=== PATIENT | female | born 1940 | race Caucasian/White ===

== ENCOUNTER 2019-09-29 01:38 | Outpatient (CLI) | payer MEDICARE, OTHER, SELFPAY ==
--- NOTE | 2019-09-29 | DI.CT_ITS ---
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 COMPARISON: CHEST 2 VIEWS PA,LAT from 12/03/2009 FINDINGS: There is mild respiratory motion on the expiratory images. There are multiple small calcified and no ncalcified mediastinal and hilar lymph nodes. There are multiple small bilateral nodules as well as i nterlobular septal thickening bilaterally, right greater than left. There are areas of scarring and m ore confluent densities seen in the right upper, middle and lower lobes. No significant bronchiectasi s. No emphysematous changes or ground-glass opacities are seen. The heart size is normal. There is mi ld aortic and pulmonary artery calcification. There are no pleural or pericardial effusions. No bony abnormalities are seen. IMPRESSION: Increased reticulonodular densities with some confluent areas of consolidation, right greater than le ft. The findings are consistent with sarcoid. Findings appear grossly stable compared with the previo us chest x-ray.
== END 2019-09-29 01:58 ==
PROVIDERS: PCP Family Medicine; Visit Provider Internal Medicine
DX: D86.0 Sarcoidosis of lung (principal)
CPT/HCPCS: 71250

== ENCOUNTER 2019-10-17 02:07 | Outpatient (CLI) | payer MEDICARE, OTHER, SELFPAY ==
--- NOTE | 2019-10-17 | PFT_ITS ---
PULMONARY FUNCTION TEST REPORT Patient - Leah Field DATE OF : 44 DATE OF SERVICE October 17, 2019. REQUESTING PROVIDER Michelle Myers M.D. INTERPRETATION OF STUDY Spirometry shows mild obstructive airways disease with no significant bronchodilator response. LUNG VOLUMES - Lung volumes show no evidence of restriction. DIFFUSION CAPACITY- Mildly reduced even when corrected to alveolar volume. AIRWAY RESISTANCE Elevated. IMPRESSION Mild obstructive airways disease with no significant bronchodilator response. This is associated with mild diffusion defect. Clinical correlation recommended. Michelle Myers M.D. JENNIFER/ DD - 10/20/19
[2019-10-17] MEDS: Inhaler, Assist Device 1 EACH MC (14:22)
[2019-10-17] MEDS: Albuterol HFA 18 GM 200 PUFF INH IH (14:22)
== END 2019-10-17 02:27 ==
PROVIDERS: PCP Family Medicine; Visit Provider Internal Medicine
DX: D86.9 Sarcoidosis, unspecified (principal)
CPT/HCPCS: 94060; 94726; 94729

== ENCOUNTER 2020-01-28 22:41 | Emergency (ER) | payer MEDICARE, OTHER, SELFPAY ==
[2020-01-28 22:54] VITALS: BP 185/71; PULSE 68; RESP 16; TEMP 36.5; O2SAT 98
[2020-01-28 22:57] VITALS: BP 152/87; PULSE 68; RESP 16; TEMP 36.5; O2SAT 98
--- NOTE | 2020-01-28 23:03 | W.ED.GENAD ---
Discharge Plan Disposition Patient Disposition: HOME Condition: Good Discharge Details Chief Complaint: RashLesion Clinical Impression: Tick bite of back Primary Care Provider: Jessica Vaughn ED Provider: Stanley Alegre Home Meds and New Rx's Prescriptions: Continued biotin 10 MG tablet 10 mg PO DAILY RF: 0 alendronate 35 MG tablet 35 mg PO DIRECTED RF: 0 flaxseed oil 1,000 MG capsule 1,000 mg PO DAILY RF: 0 Flovent HFA 120 PUFF HFA aerosol inhaler 1 puff Inhalation DAILY RF: 0 Magnesium (oxide/AA chelate) 300 MG capsule 300 mg PO DAILY RF: 0 loratadine [Claritin Liqui-Gel] 10 MG capsule 10 mg PO HS RF: 0 Soothe Lubricant 1 EACH dropperette 2 drp OU TID RF: 0 calcium carb and citrate-vitD3 1 EACH tablet extended release 2 tab PO BID RF: 0 OcuSoft Lid Scrub Plus 1 EACH pads, medicated 1 ea OU TID RF: 0 Discharge Instructions Instructions: Tick Bite (ED) Additional Instructions: Please take the 2 pills tonight with food, avoid dairy when taking the pills. If you notice any worsening of your symptoms, or any new symptoms such as spreading rash, worsening redness, vomiting, diarrhea, fever, chills, shortness of breath, chest pain, numbness, weakness, or fainting , please return immediately to the emergency department for reevaluation. Please follow up with your primary care provider as soon as possible for reassessment and reevaluation. As always, it was a pleasure participating in your medical care today. Referrals: Jessica Vaughn [Primary Care Provider] - Discharge Data Discharge Date/Time-TO BE ENTERED AT DEPARTURE: 01/28/20 23:15 Medical Decision Making 79-year-old female presents today for evaluation of tick bite. Patient states that 2 weeks ago she had a tick bite, located on extremity, she removed it went to the urgent care received doxycycline. Since then over the last 2 days she has noticed 2 additional ticks both of which are been deer ticks which she was able to remove, however the removal of the site of the 1 on her posterior back she did notice a small amount of redness tonight when she removed it. She is come in for further evaluation. She denies fever chills joint pain. She denies numbness tingling or weakness. No other complaints at this time. No known allergies to doxycycline. Physical exam demonstrates a small amount of redness on her left lower flank location of what appears to be a previous tick bite. No bull's-eye lesion, no fluctuance or evidence of abscess, no evidence of true erythema migrans at this point. With the patient's recent bite I do think prophylactic treatment is reasonable with 200 mg of doxycycline given here. Pills will be given here for the patient. Discussed red flags which to return. I have extensively reviewed the treatment plan and discharge instructions with the patient. I have addressed all patient concerns at this time. The patient was made aware of what symptoms to monitor for that would warrant a return to the emergency department. Discussed the plan with the patient, they demonstrate verbal understanding and agreement with our assessment and plan at this time. HPI General Date/Time Provider Initiated Documentation: 01/28/20 22:52. HPI Narrative: 79-year-old female presents today for evaluation of tick bite. Patient states that 2 weeks ago she had a tick bite, located on extremity, she removed it went to the urgent care received doxycycline. Since then over the last 2 days she has noticed 2 additional ticks both of which are been deer ticks which she was able to remove, however the removal of the site of the 1 on her posterior back she did notice a small amount of redness tonight when she removed it. She is come in for further evaluation. She denies fever chills joint pain. She denies numbness tingling or weakness. No other complaints at this time. No known allergies to doxycycline. Related Data Home Medications Medication Instructions Recorded Confirmed Flovent HFA 1 puff INHALATION DAILY 05/07/17 01/28/20 Magnesium (oxide/AA chelate) 300 mg PO DAILY 05/07/17 01/28/20 alendronate 35 mg PO DIRECTED 05/07/17 01/28/20 biotin 10 mg PO DAILY 05/07/17 01/28/20 flaxseed oil 1,000 mg PO DAILY 05/07/17 01/28/20 loratadine [Claritin Liqui-Gel] 10 mg PO HS 05/07/17 01/28/20 OcuSoft Lid Scrub Plus 1 ea OU TID 07/06/17 01/28/20 Soothe Lubricant 2 drp OU TID 07/06/17 01/28/20 calcium carb and citrate-vitD3 2 tab PO BID 07/06/17 01/28/20 Allergies Allergy/AdvReac Type Severity Reaction Status Date / Time adhesive tape AdvReac Intermediate Other (See Unverified 01/28/20 22:57 Comment) hydromorphone [From Dilaudid] AdvReac Intermediate Nausea Unverified 01/28/20 22:57 metronidazole [From Flagyl] AdvReac Intermediate Skin Rash Unverified 01/28/20 22:57 mild Allergy Intermediate sinusitis Uncoded 01/28/20 22:57 General Stated Complaint: RashLesion ABIMBOLA: 5 Review of Systems All systems reviewed & are unremarkable except as noted in HPI and below PFSH Social History Smoking/Tobacco Use Status: Never Substance use type: does not use Do you feel safe at home: Yes Do you feel safe in your relationship?: Yes Exam Narrative Exam Narrative: 1.Const: Well-nourished, Well-developed, appearing stated age 2.Eyes: PERRL, no conjunctival injection, and symmetrical lids. 3.ENT: Atraumatic external nose and ears. Moist MM. Neck: Symmetric, trachea midline, No thyromegaly. 4.CVS: +S1/S2, No murmurs or gallops. Peripheral pulses 2+ and equal in all extremities. Brisk capillary refill in all extremities. 5.RESP: Unlabored respiratory effort. Clear to auscultation bilaterally. No wheezes rales or rhonchi 6.GI: Soft, Nontender/Nondistended, No hepatosplenomegaly. No guarding or rebound. 7.MSK: Normocephalic/Atraumatic, Extremities w/o deformity or ttp No cyanosis or clubbing, Normal movement of all extremities 8.Skin: Warm, Dry. Patient's left flank demonstrates a very small erythematous spot, no evidence of retained arthropod. No bull's-eye lesion. Mild tenderness on palpation there, but no fluctuance or signs of abscess. Negative Nikolsky sign. No large vesicles or bulla. No palpable purpura. No oral lesions. No mucosal lesions. No evidence of severe cellulitis. No evidence of vaccine preventable rash. 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 Sensation grossly intact, no focal neurologic deficits. 10.Psych: (AAO) x3. Appropriate mood and affect Course Vital Signs Vital signs: Vital Signs Temperature 36.5 C 01/28/20 22:54 Pulse 68 01/28/20 22:54 Respiratory Rate 16 01/28/20 22:54 Blood Pressure 185/71 H 01/28/20 22:54 Pulse Oximetry 98 01/28/20 22:54 Temperature 36.5 C 01/28/20 22:57 Temperature Source Skin 01/28/20 22:54 Pulse 68 01/28/20 22:57 Respiratory Rate 16 01/28/20 22:57 Respiratory Effort Non-Labored 01/28/20 22:54 Blood Pressure 152/87 H 01/28/20 22:57 Blood Pressure Position Sitting 01/28/20 22:54 Pulse Oximetry 98 01/28/20 22:57 Oxygen Delivery Method Room Air 01/28/20 22:54 Oxygen Flow Rate 0 01/28/20 22:54 Pain Level 2 01/28/20 22:57
[2020-01-28] MEDS: Doxycycline Hyclate 100 MG, 2 CAPS/BTL PO (23:08)
== END 2020-01-28 23:15 | disposition home or self-care (01) ==
PROVIDERS: Emergency Provider Student in an Organized Health Care Education/Training Program; PCP Family Medicine
DX: S30.860A Insect bite (nonvenomous) of lower back and pelvis, initial encounter (principal); W57.XXXA Bitten or stung by nonvenomous insect and other nonvenomous arthropods, initial encounter
CPT/HCPCS: 99283

== ENCOUNTER 2020-01-29 23:16 | Emergency (ER) | payer MEDICARE, OTHER, SELFPAY ==
--- NOTE | 2020-01-29 23:18 | ED.GENADUL_ITS ---
Discharge Plan Disposition Patient Disposition: HOME Condition: Good Discharge Details Chief Complaint: GenMedical Clinical Impression: Encounter for medical screening examination, Tick bite Primary Care Provider: Jessica Vaughn ED Provider: Stanley Alegre Home Meds and New Rx's Prescriptions: Continued biotin 10 MG tablet 10 mg PO DAILY RF: 0 alendronate 35 MG tablet 35 mg PO DIRECTED RF: 0 flaxseed oil 1,000 MG capsule 1,000 mg PO DAILY RF: 0 Flovent HFA 120 PUFF HFA aerosol inhaler 1 puff Inhalation DAILY RF: 0 Magnesium (oxide/AA chelate) 300 MG capsule 300 mg PO DAILY RF: 0 loratadine [Claritin Liqui-Gel] 10 MG capsule 10 mg PO HS RF: 0 Soothe Lubricant 1 EACH dropperette 2 drp OU TID RF: 0 calcium carb and citrate-vitD3 1 EACH tablet extended release 2 tab PO BID RF: 0 OcuSoft Lid Scrub Plus 1 EACH pads, medicated 1 ea OU TID RF: 0 Discharge Instructions Instructions: Tick Bite (ED) Additional Instructions: At this time before we remove the tick in the head, it was a dog tick, the likelihood of Lyme is extremely low, and since you got the tick off within 48 hours there is no indication for antibiotics. If you notice any worsening of your symptoms, or any new symptoms such as vomiting, diarrhea, fever, chills, shortness of breath, chest pain, numbness, weakness, or fainting , please return immediately to the emergency department for reevaluation. Please follow up with your primary care provider as soon as possible for reassessment and reevaluation. As always, it was a pleasure participating in your medical care today. Referrals: Jessica Vaughn [Primary Care Provider] - Medical Decision Making 79-year-old female presents today for evaluation of tick bite. She was actually just seen last night, tick was removed at that time, small red spot was present she was given dose of doxycycline 200 mg. She presents today she found another tick on her anterior chest today, was only there for a few hours she ripped it off and want to get checked make sure there was no retained foreign body. She otherwise has no complaints, no no fever chills redness swelling or other complaints. No other modifying factors. He took that the patient has here is fully intact with a bit of skin at the tip, it is notably not engorged. It is also a dog tick and not a deer tick. At this time there is no indication for antibiotics such as it has been less than 48 hours since the tick bite, the tick is not engorged, and it is a dog tick. Discussed red flags which return. I have extensively reviewed the treatment plan and discharge instructions with the patient and their family. I have addressed all patient concerns at this time. The patient and family was made aware of what symptoms to monitor for that would warrant a return to the emergency department. Discussed the plan with the patient and family, they demonstrate verbal understanding and agreement with our assessment and plan at this time. Also of note the small red spot that was on the patient's flank from last night is slightly improved as well and definitely not worsening. HPI General Date/Time Provider Initiated Documentation: 01/29/20 23:16 . HPI Narrative: 79-year-old female presents today for evaluation of tick bite. She was actually just seen last night, tick was removed at that time, small red spot was present she was given dose of doxycycline 200 mg. She presents today she found another tick on her anterior chest today, was only there for a few hours she ripped it off and want to get checked make sure there was no retained foreign body. She otherwise has no complaints, no no fever chills redness swelling or other complaints. No other modifying factors. Related Data Home Medications Medication Instructions Recorded Confirmed Flovent HFA 1 puff INHALATION DAILY 05/07/17 01/28/20 Magnesium (oxide/AA chelate) 300 mg PO DAILY 05/07/17 01/28/20 alendronate 35 mg PO DIRECTED 05/07/17 01/28/20 biotin 10 mg PO DAILY 05/07/17 01/28/20 flaxseed oil 1,000 mg PO DAILY 05/07/17 01/28/20 loratadine [Claritin Liqui-Gel] 10 mg PO HS 05/07/17 01/28/20 OcuSoft Lid Scrub Plus 1 ea OU TID 07/06/17 01/28/20 Soothe Lubricant 2 drp OU TID 07/06/17 01/28/20 calcium carb and citrate-vitD3 2 tab PO BID 07/06/17 01/28/20 Allergies Allergy/AdvReac Type Severity Reaction Status Date / Time adhesive tape AdvReac Intermediate Other (See Unverified 01/29/20 23:21 Comment) hydromorphone [From Dilaudid] AdvReac Intermediate Nausea Unverified 01/29/20 23:21 metronidazole [From Flagyl] AdvReac Intermediate Skin Rash Unverified 01/29/20 23:21 mild Allergy Intermediate sinusitis Uncoded 01/29/20 23:21 General ABIMBOLA: 5 Review of Systems All systems reviewed & are unremarkable except as noted in HPI and below PFSH Social History Smoking/Tobacco Use Status: Never Substance use type: does not use Do you feel safe at home: Yes Do you feel safe in your relationship?: Yes Exam Narrative Exam Narrative: 1.Const: Well-nourished, Well-developed, appearing stated age 2.Eyes: PERRL, no conjunctival injection, and symmetrical lids. 3.ENT: Atraumatic external nose and ears. Moist MM. Neck: Symmetric, trachea midline, No thyromegaly. 4.CVS: +S1/S2, No murmurs or gallops. Peripheral pulses 2+ and equal in all extremities. Brisk capillary refill in all extremities. 5.RESP: Unlabored respiratory effort. Clear to auscultation bilaterally. No wheezes rales or rhonchi 6.GI: Soft, Nontender/Nondistended, No hepatosplenomegaly. No guarding or rebound. 7.MSK: Normocephalic/Atraumatic, Extremities w/o deformity or ttp No cyanosis or clubbing, Normal movement of all extremities 8.Skin: Warm, Dry. No rashes or lesions. No evidence of erythema migrans. The lesion on her anterior chest for the tick was removed cannot be identified there is no evidence of foreign bug at all. The tick that she gives us has its complete body intact, with a small amount of skin. No evidence for retained head. 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 Sensation grossly intact, no focal neurologic deficits. 10.Psych: (AAO) x3. Appropriate mood and affect
[2020-01-29 23:19] VITALS: BP 146/72; PULSE 78; RESP 18; TEMP 36.8; O2SAT 96
--- NOTE | 2020-01-29 23:25 | NUR.NOTE ---
Nursing Note: patient was seen yesterday for a tick bite to her right side. today she was in the garden and found a tick on her abdomen. removed it and brought it in to be assessed.
== END 2020-01-29 23:28 | disposition home or self-care (01) ==
LOC: ER 23:29
PROVIDERS: Emergency Provider Student in an Organized Health Care Education/Training Program; PCP Family Medicine
DX: S20.96XA Insect bite (nonvenomous) of unspecified parts of thorax, initial encounter (principal); W57.XXXA Bitten or stung by nonvenomous insect and other nonvenomous arthropods, initial encounter
CPT/HCPCS: 99283

== ENCOUNTER 2022-09-30 12:10 | Emergency (ER) | payer MEDICARE, OTHER, SELFPAY ==
--- NOTE | 2022-09-30 12:15 | DI.US_ITS ---
Exam(s) US LOWER EXTREMITY VENOUS RT EXAM: US LOWER EXTREMITY VENOUS RT CLINICAL HISTORY: right calf pain TECHNIQUE: Right lower extremity venous ultrasound performed using grayscale, color-flow, and spectr al Doppler analysis. COMPARISON: No exams were available for comparison FINDINGS: The right common femoral, femoral and popliteal veins demonstrate normal compressibility, augmentatio n, and color Doppler. The posterior tibial veins are patent. The saphenofemoral junction is unremark able. There is no evidence of a Palumbo cyst. The soft tissues are unremarkable. IMPRESSION: 1. No evidence of a right lower extremity DVT. 2. Findings were discussed with Jose Medina at 12:58 p.m. on 09/30/2022. DATA REPOSITORY:
[2022-09-30 12:30] VITALS: BP 130/111; PULSE 73; RESP 16; TEMP 36; O2SAT 99
[2022-09-30 12:36] VITALS: RESP 16
--- NOTE | 2022-09-30 12:52 | ED.GENADUL_ITS ---
Discharge Plan Disposition Patient Disposition: Home Condition: Stable Discharge Details Clinical Impression: Right calf pain Primary Care Provider: Kathi Holbrook ED Provider: Jose Medina Home Meds and New Rx's Prescriptions: Continued biotin 10 MG tablet 10 mg PO DAILY alendronate 35 MG tablet 35 mg PO DIRECTED flaxseed oil 1,000 MG capsule 1,000 mg PO DAILY fluticasone propionate [Flovent HFA] 120 PUFF HFA aerosol inhaler 1 puff Inhalation DAILY Magnesium (oxide/AA chelate) 300 MG capsule 300 mg PO DAILY Claritin Liqui-Gel 10 MG capsule 10 mg PO HS Soothe Lubricant 1 EACH dropperette 2 drp OU TID calcium carb and citrate-vitD3 1 EACH tablet extended release 2 tab PO BID OcuSoft Lid Scrub Plus 1 EACH pads, medicated 1 ea OU TID Discharge Instructions Instructions: Leg Pain (ED) Additional Instructions: You may continue to perform activity as tolerated and take [id number] pain medication as needed for discomfort. No obvious DVT was noted on exam today but if you have any new or significant worsening of condition or change in your symptoms you may feel free to follow-up with your primary care provider or return to the emergency department for reassessment. Referrals: Kathi Holbrook, ANALYTICS SENIOR MANAGER [Primary Care Provider] - (As needed for reassessment) Discharge Data Discharge Date/Time-TO BE ENTERED AT DEPARTURE: 09/30/22 13:08 Medical Decision Making Patient presenting to the emergency department for chief complaint of right calf pain. Patient states that she does ride in a car for 4 hours at a time and is concerned about a potential clot. Patient denies any history of blood clots, denies any recent surgery or trauma, denies fever chills chest pain or shortness of breath. Physical exam does show tenderness to the right posterior mid to proximal calf. No ecchymosis erythema or swelling is noted to the area of tenderness or distal to pain. Given patient's age and long periods of being sedentary will perform ultrasound of right lower extremity for evaluation of DVT. Offered patient pain medication pending results which she deferred at this time. Review of pulmonary report from master technician showed no DVT or thrombus noted on exam. I do feel that patient is able to safely monitor symptoms at home and follow-up with primary care provider or return to the emergency department for new or worsening symptoms. After discussion of diagnosis and plan of care patient has no further needs, questions, or concerns and states clear understanding to return to the emergency department for any worsening symptoms. This documentation was generated using [employer] dictation system, please disregard any oddities of phrase or misspellings. Imaging Data Radiologic Study: Attestation: I personally reviewed and interpreted this imaging study as follows: Imaging: Ultrasound Radiologist's impression: EXAM: US LOWER EXTREMITY VENOUS RT CLINICAL HISTORY: right calf pain TECHNIQUE: Right lower extremity venous ultrasound performed using grayscale, color-flow, and spectral Doppler analysis. COMPARISON: No exams were available for comparison FINDINGS: The right common femoral, femoral and popliteal veins demonstrate normal compressibility, augmentation, and color Doppler. The posterior tibial veins are patent. The saphenofemoral junction is unremarkable. There is no evidence of a Palumbo cyst. The soft tissues are unremarkable. IMPRESSION: 1. No evidence of a right lower extremity DVT. 2. Findings were discussed with Jose Medina at 12:58 p.m. on 09/30/2022. [facility] General Mode of arrival: ambulatory . Date/Time Provider Initiated Documentation: 09/30/22 12:20 . Limitations to Documentation: no limitations . Information obtained by: patient and RN notes reviewed . History of Present Illness 82 year old F presents to the emergency department with the chief complaint of Right calf pain, described as mild, with intensity rated at 4. Quality is described as aching, and is localized to the right and lower extremity. Patient reports no radiation. Patient started experiencing this day(s) (2) and it has been constant. No relieving factors improve symptom(s), Movement worsens symptoms . Patient notes no other symptoms.. Patient did receive the following treatments prior to arrival, none Related Data Home Medications Medication Instructions Recorded Confirmed alendronate 35 mg tablet 35 mg PO DIRECTED 05/07/17 09/30/22 biotin 10 mg tablet 10 mg PO DAILY 05/07/17 09/30/22 flaxseed oil 1,000 mg capsule 1,000 mg PO DAILY 05/07/17 01/28/20 fluticasone propionate 44 1 puff inhalation DAILY 05/07/17 09/30/22 mcg/actuation HFA aerosol inhaler (Flovent HFA) loratadine 10 mg capsule (Claritin 10 mg PO HS 05/07/17 09/30/22 Liqui-Gel) magnesium oxide-magnesium amino 300 mg PO DAILY 05/07/17 09/30/22 acid chelate 300 mg capsule (Magnesium (oxide/AA chelate)) calcium carb,cit ER 600 mg-vit D3 2 tab PO BID 07/06/17 09/30/22 12.5 mcg (500 unit) tablet,ext.rel eyelid cleanser combination 3 1 ea OU TID 07/06/17 09/30/22 (OcuSoft Lid Scrub Plus topical pads) propylene glycol-glycerin 0.6 2 drp OU TID 07/06/17 09/30/22 %-0.6 % eye drops in a dropperette (Soothe Lubricant) Allergies Allergy/AdvReac Type Severity Reaction Status Date / Time adhesive tape AdvReac Intermediate Other (See Unverified 09/30/22 12:34 Comment) hydromorphone [From Dilaudid] AdvReac Intermediate Nausea Unverified 09/30/22 12:34 metronidazole [From Flagyl] AdvReac Intermediate Skin Rash Unverified 09/30/22 12:34 mild Allergy Intermediate sinusitis Uncoded 09/30/22 12:34 General Stated Complaint: GenMedical ABIMBOLA: 4 Review of Systems Constitutional Constitutional: Denies chills, Denies fever(s) and Denies headache(s) ENT Ears, Nose, Mouth, and Throat: Denies headache(s) Cardiovascular Cardiovascular: Denies chest pain, Denies pedal edema, Denies irregular heart rhythm, Reports claudication, Denies leg edema, Denies lightheadedness and Denies dyspnea Respiratory Respiratory: Denies dyspnea Gastrointestinal Gastrointestinal: Denies abdominal pain Musculoskeletal Musculoskeletal: Reports as per HPI Integumentary/Breasts Skin/Breast: Denies erythema and Denies rash Neurologic Neurologic: Denies headache(s) and Denies sensory deficit PFSH All Active Problems (Updated 09/30/22 @ 12:58 by Jose Medina NP) Right calf pain (Acute) Social History Smoking/Tobacco Use Status: Never Smoking risk assessment performed?: Yes Alcohol Intake: never Substance use type: does not use Do you feel safe at home: Yes Do you feel safe in your relationship?: Yes Exam Const General: cooperative, no acute distress and not ill appearing Orientation: alert, awake and oriented x3 Resp Effort & Inspection: normal respiratory effort, able to speak in complete sentences and no respiratory distress Cardio Rate: regular rate Rhythm: regular rhythm Pulses: normal peripheral pulses Skin General skin exam: no rashes or lesions noted Neuro General: patient alert, patient awake, patient oriented x3, moves all extremities and no focal motor deficits Sensory Exam: no sensory deficits noted Extrem General: normal exam except as noted Right lower extremity: normal capillary refill, lower leg Details: tenderness Location: of the posterior calf and no edema; no ecchymosis and no deformity and foot Details: normal capillary refill, no edema and vascular exam Details: dorsalis pedis pulse present and posterior tibial pulse present Course Vital Signs Vital signs: Vital Signs Temperature 36.0 C L 09/30/22 12:30 Pulse 73 09/30/22 12:30 Respiratory Rate 16 09/30/22 12:30 Blood Pressure 130/111 H 09/30/22 12:30 Pulse Oximetry 99 09/30/22 12:30 Temperature 36.0 C L 09/30/22 12:30 Temperature Source Temporal Artery Scan 09/30/22 12:30 Pulse 73 09/30/22 12:30 Respiratory Rate 16 09/30/22 12:36 Respiratory Effort Normal, Non-Labored 09/30/22 12:36 Respiratory Depth Normal 09/30/22 12:36 Respiratory Pattern Normal 09/30/22 12:36 Blood Pressure 130/111 H 09/30/22 12:30 Blood Pressure Position Sitting 09/30/22 12:30 Pulse Oximetry 99 09/30/22 12:30 Oxygen Delivery Method Room Air 09/30/22 12:30 Oxygen Flow Rate 0 09/30/22 12:30
[2022-09-30 13:02] VITALS: BP 157/49; PULSE 70; RESP 16; TEMP 36.2; O2SAT 98
== END 2022-09-30 13:08 | disposition home or self-care (01) ==
PROVIDERS: Emergency Provider Nurse Practitioner Family; PCP Nurse Practitioner Family
DX: M79.661 Pain in right lower leg (principal)
CPT/HCPCS: 99283; 93971

== ENCOUNTER 2022-11-26 02:53 | Outpatient (CLI) | payer MEDICARE, SELFPAY ==
[2022-11-26 09:32] LABS: Abs Immature Grans 0.02 10^3/uL (0.0-0.06); Absolute Basophil Count 0.03 10^3/uL (0.0-0.2); Absolute Eosinophil Count 0.11 10^3/uL (0.0-0.7); Absolute Lymphocyte Count 0.73 10^3/uL (1.2-3.4); Absolute Monocyte Count 0.44 10^3/uL (0.1-0.8); Basophils % 0.7; Eosinophils % 2.4; HCT 41.2 % (36.0-46.0); HGB 14.1 g/dL (11.2-15.7); Immature Grans % 0.4; Lymphocytes % 16.1; MCH 29.6 pg (27.0-33.0); MCHC 34.2 % (32.0-36.0); MCV 86 fL (80-95); MPV 9.5 fL (8.0-11.0); Monocytes % 9.7; Neutrophils % 70.7; Platelet Count 149 10^3/uL (130-400); RBC 4.77 10^6/uL (3.93-5.22); RDW 12.1 % (11.7-14.6); RDW-SD 38.5 fL; WBC 4.53 10^3/uL (4.4-10.8)
[2022-11-26 10:00] LABS: ALT 24 U/L (14-59); AST 19 U/L (15-37); Albumin 3.6 g/dL (3.4-5.0); Alkaline Phosphatase 93 U/L (46-116); Anion Gap 5.1 mmol/L (3-11); BUN 18 mg/dL (7-18); Bilirubin, Total 0.4 mg/dL (0.2-1.0); CO2 29.9 mmol/L (21.0-32.0); CREATININE 0.9 mg/dL (0.55-1.02); Calcium 8.7 mg/dL (8.5-10.1); Chloride 110 mmol/L (98-107); Estimated GFR 64.63 (mL/min/1.73m2); Glucose 96 mg/dL (74-106); Potassium 4.3 mmol/L (3.5-5.1); Sodium 145 mmol/L (136-145); Total Protein 6.7 g/dL (6.4-8.2)
== END 2022-11-26 02:54 | disposition home or self-care (01) ==
LOC: LBO 02:53
PROVIDERS: PCP Nurse Practitioner Family; Visit Provider Internal Medicine Hematology & Oncology
DX: D69.6 Thrombocytopenia, unspecified (principal); D72.819 Decreased white blood cell count, unspecified
CPT/HCPCS: 36415; 80053; 85025

== ENCOUNTER 2023-07-01 13:55 | Emergency (ER) | payer MEDICARE, OTHER, SELFPAY ==
[2023-07-01 14:03] VITALS: BP 124/58; PULSE 82; RESP 16; TEMP 36.6; O2SAT 98
[2023-07-01 14:05] VITALS: BP 124/58; PULSE 72; RESP 14; RESP 16; TEMP 36.6; O2SAT 98
--- NOTE | 2023-07-07 16:21 | ED.GENADUL_ITS ---
Discharge Plan Disposition Patient Disposition: Home Discharge Details Clinical Impression: COVID-19, Oral thrush, Pulmonary sarcoidosis Primary Care Provider: Kathi Holbrook ED Provider: Barbara Martinez Home Meds and New Rx's Prescriptions: New nystatin 100,000 unit/mL suspension 100,000 unit PO QID Qty: 200 0RF Rx Instructions: swish and swallow 4-6 ml po qid for 7-14 days or for at least two days after your thrush has resolved Paxlovid 300 mg (150 mg x 2)-100 mg tablets,dose pack See Rx Instructions .ROUTE .COMPLEX Qty: 30 0RF Rx Instructions: take TWO 150 mg tablets of nirmatrelvir with ONE 100 mg tablet of ritonavir twice daily for 5 days Continued biotin 10 MG tablet 10 mg PO DAILY fluticasone propionate [Flovent HFA] 120 PUFF HFA aerosol inhaler 1 puff Inhalation DAILY Magnesium (oxide/AA chelate) 300 MG capsule 300 mg PO DAILY Discharge Instructions Instructions: Viral Syndrome (ED) Additional Instructions: Take the Paxlovid as prescribed take the nystatin as prescribed Rest, keep yourself hydrated Please return earlier should you have new or worsening complaints Follow-up with your doctor next week Referrals: Kathi Holbrook, REAL ESTATE BROKER ASSOCIATE [Primary Care Provider] - Discharge Data Discharge Date/Time-TO BE ENTERED AT DEPARTURE: 07/01/23 14:42 Medical Decision Making 82-year-old female presenting with report of a COVID-19 diagnosis white discharge on tongue and mild sore throat Vitals are stable, patient appears quite well She is still a candidate for Paxlovid because of a history of pulmonary sarcoidosis So I think she is a candidate to receive this medication, she had recent labs and her renal function was within normal limits and so I will call in a prescription for her Patient is afebrile and nontoxic She is given low threshold for return Lungs are clear to auscultation, rate rhythm cardiovascularly is regular, maintaining secretions, thrush noted on tongue, will give prescription for nystatin swish and swallow Recheck next week recommended Early return precautions reviewed and patient expressed understanding Alert, oriented, pleasant HPI General Date/Time Provider Initiated Documentation: 07/01/23 14:07 . HPI Narrative: 82-year-old female presents with report of COVID-19 diagnosis 3 days prior to arrival, respiratory standpoint. States she is breathing well but is concerned regarding some weight discharge, tongue which she is concerned for thrush. Has a history of pulmonary sarcoidosis. Is not on any immunosuppressive's. Denies fever but has had some chills. Denies any weakness or dizziness. Otherwise feeling well per patient. Mild sore throat. Related Data Home Medications Medication Instructions Recorded Confirmed biotin 10 mg tablet 10 mg PO DAILY 05/07/17 07/01/23 fluticasone propionate 44 1 puff inhalation DAILY 05/07/17 07/01/23 mcg/actuation HFA aerosol inhaler (Flovent HFA) magnesium oxide-magnesium amino 300 mg PO DAILY 05/07/17 07/01/23 acid chelate 300 mg capsule (Magnesium (oxide/AA chelate)) nirmatrelvir 300 mg (150 mg See Rx Instructions PO .COMPLEX 07/01/23 x2)-ritonavir 100 mg tablet,dose #30 dose pk pack (Paxlovid) nystatin 100,000 unit/mL oral 100,000 unit PO QID #200 mL 07/01/23 suspension Previous Rx's Medication Instructions Recorded nirmatrelvir 300 mg (150 mg See Rx Instructions PO .COMPLEX 07/01/23 x2)-ritonavir 100 mg tablet,dose #30 dose pk pack (Paxlovid) nystatin 100,000 unit/mL oral 100,000 unit PO QID #200 mL 07/01/23 suspension Allergies Allergy/AdvReac Type Severity Reaction Status Date / Time adhesive tape AdvReac Intermediate Other (See Unverified 09/30/22 12:34 Comment) hydromorphone [From Dilaudid] AdvReac Intermediate Nausea Unverified 09/30/22 12:34 metronidazole [From Flagyl] AdvReac Intermediate Skin Rash Unverified 09/30/22 12:34 mild Allergy Intermediate sinusitis Uncoded 09/30/22 12:34 General Stated Complaint: GenMedical ABIMBOLA: 4 PFSH All Active Problems (Updated 07/01/23 @ 14:30 by NARCISO Mckeno) Pulmonary sarcoidosis (Acute) Oral thrush (Acute) COVID-19 (Acute) Social History Smoking/Tobacco Use Status: Never Smoking risk assessment performed?: Yes Alcohol Intake: never Substance use type: does not use Do you feel safe at home: Yes Do you feel safe in your relationship?: Yes Course Vital Signs Vital signs: Vital Signs Temperature 36.6 C 07/01/23 14:03 Pulse 82 07/01/23 14:03 Respiratory Rate 16 07/01/23 14:03 Blood Pressure 124/58 L 07/01/23 14:03 Pulse Oximetry 98 07/01/23 14:03 Temperature 36.6 C 07/01/23 14:05 Temperature Source Tympanic 07/01/23 14:05 Pulse 72 07/01/23 14:05 Respiratory Rate 14 07/01/23 14:05 Respiratory Effort Normal 07/01/23 14:05 Respiratory Depth Normal 07/01/23 14:05 Respiratory Pattern Normal 07/01/23 14:05 Blood Pressure 124/58 L 07/01/23 14:05 Blood Pressure Position Sitting 07/01/23 14:05 Pulse Oximetry 98 07/01/23 14:05 Oxygen Delivery Method Room Air 07/01/23 14:05 Oxygen Flow Rate 0 07/01/23 14:03 Pain Level 0 07/01/23 14:41
== END 2023-07-01 14:42 | disposition home or self-care (01) ==
PROVIDERS: Emergency Provider Physician Assistant; PCP Nurse Practitioner Family
DX: U07.1 COVID-19 (principal); B37.0 Candidal stomatitis; D86.9 Sarcoidosis, unspecified
CPT/HCPCS: 99283

== ENCOUNTER → 2023-09-17 00:52 | Outpatient (CLI) | payer MEDICARE, SELFPAY ==
--- NOTE | 2023-09-17 | DI.DEXA_ITS ---
Exam(s) XR DEXA BONE DENSITY W/WO ANUSHA EXAM: XR DEXA BONE DENSITY W/WO ANUSHA CLINICAL HISTORY: F/U OSTEOPOROSIS, M81.0 FROM EXAM 09/11/19 TECHNIQUE: Routine DEXA evaluation of the lumbar spine, hip, or forearm. COMPARISON: No exams were available for comparison FINDINGS: Performed on a Hologic unit. Lateral image: No compression fracture evident. Lumbar Spine total T-score: -3.6 Hip total T-score:-2.2 Independent reading at the level of the femoral neck yields T-score of -2.3 Forearm total T-score: -3.2 IMPRESSION: Bone mineral density measures in the osteoporosis range. Fracture risk is high. Note: Any spine fracture indicates 5x risk for subsequent spine fracture and 2x risk for subsequent h ip fracture. World Health Organization criteria for BMD interpretation classify patients: Normal...... T- Score at or above -1.0 Osteopenic... T- Score between -1.0 and -2.5 Osteoporosis... T-Score at or below -2.5
== END ==
PROVIDERS: PCP Nurse Practitioner Family; Visit Provider Internal Medicine Rheumatology
DX: M81.0 Age-related osteoporosis without current pathological fracture (principal); Z13.820 Encounter for screening for osteoporosis
CPT/HCPCS: 77080

== ENCOUNTER 2023-10-05 11:11 | Emergency (ER) | payer MEDICARE, OTHER, SELFPAY ==
[2023-10-05 11:14] VITALS: BP 157/77; PULSE 72; RESP 18; TEMP 36.7; O2SAT 100
--- NOTE | 2023-10-05 11:48 | ED.GENADUL_ITS ---
Discharge Plan Discharge Details Chief Complaint: Sorethroat Primary Care Provider: Kathi Holbrook ED Provider: Renetta Tyler Home Meds and New Rx's Prescriptions: No Action nystatin 100,000 unit/mL suspension 100,000 unit PO QID Qty: 200 0RF Rx Instructions: swish and swallow 4-6 ml po qid for 7-14 days or for at least two days after your thrush has resolved Paxlovid 300 mg (150 mg x 2)-100 mg tablets,dose pack See Rx Instructions .ROUTE .COMPLEX Qty: 30 0RF Rx Instructions: take TWO 150 mg tablets of nirmatrelvir with ONE 100 mg tablet of ritonavir twice daily for 5 days biotin 10 MG tablet 10 mg PO DAILY fluticasone propionate [Flovent HFA] 120 PUFF HFA aerosol inhaler 1 puff Inhalation DAILY Magnesium (oxide/AA chelate) 300 MG capsule 300 mg PO DAILY HPI General Date/Time Provider Initiated Documentation: 10/05/23 11:23 . HPI Narrative: Leah is a 83-year-old female with history of pulmonary sarcoidosis and asthma who presents to the emergency department for evaluation of viral symptoms. She reports that she started feeling unwell 2 days ago, with phlegm in her throat and mild cough that she attributes to the phlegm. She also reports pressure in the frontal sinuses with occasional sinus headache, and intermittent chills (no shaking chills). Denies fever, difficulty swallowing, chest pain, shortness of breath/wheezing, nausea/vomiting, change in p.o. intake, abdominal discomfort, change in bowel or bladder function. She took an at home COVID test which was negative. Related Data Home Medications Medication Instructions Recorded Confirmed biotin 10 mg tablet 10 mg PO DAILY 05/07/17 07/01/23 fluticasone propionate 44 1 puff inhalation DAILY 05/07/17 07/01/23 mcg/actuation HFA aerosol inhaler (Flovent HFA) magnesium oxide-magnesium amino 300 mg PO DAILY 05/07/17 07/01/23 acid chelate 300 mg capsule (Magnesium (oxide/AA chelate)) nirmatrelvir 300 mg (150 mg See Rx Instructions PO .COMPLEX 07/01/23 x2)-ritonavir 100 mg tablet,dose #30 dose pk pack (Paxlovid) nystatin 100,000 unit/mL oral 100,000 unit PO QID #200 mL 07/01/23 suspension Previous Rx's Medication Instructions Recorded nirmatrelvir 300 mg (150 mg See Rx Instructions PO .COMPLEX 07/01/23 x2)-ritonavir 100 mg tablet,dose #30 dose pk pack (Paxlovid) nystatin 100,000 unit/mL oral 100,000 unit PO QID #200 mL 07/01/23 suspension Allergies Allergy/AdvReac Type Severity Reaction Status Date / Time adhesive tape AdvReac Intermediate Other (See Unverified 10/05/23 12:21 Comment) hydromorphone [From Dilaudid] AdvReac Intermediate Nausea Unverified 10/05/23 12:21 metronidazole [From Flagyl] AdvReac Intermediate Skin Rash Unverified 10/05/23 12:21 mild Allergy Intermediate sinusitis Uncoded 10/05/23 12:21 General Stated Complaint: Sorethroat ABIMBOLA: 4 Review of Systems Narrative: see HPI Exam Const General: cooperative, healthy appearing, comfortable and no acute distress HENMT Head: normal to inspection Ears: hearing grossly normal bilaterally General nose exam: external nose normal Face and sinus: normal facial exam Throat: posterior oropharynx normal, tonsils normal and uvula midline Resp Effort & Inspection: normal respiratory effort and able to speak in complete sentences Auscultation: clear to auscultation bilaterally Cardio Rate: regular rate Rhythm: regular rhythm Course Vital Signs Vital signs: Vital Signs Temperature 36.7 C 10/05/23 11:14 Pulse 72 10/05/23 11:14 Respiratory Rate 18 10/05/23 11:14 Blood Pressure 157/77 H 10/05/23 11:14 Pulse Oximetry 100 10/05/23 11:14 Temperature 36.7 C 10/05/23 11:14 Temperature Source Tympanic 10/05/23 11:14 Pulse 72 10/05/23 11:14 Respiratory Rate 18 10/05/23 11:14 Blood Pressure 157/77 H 10/05/23 11:14 Blood Pressure Position Sitting 10/05/23 11:14 Pulse Oximetry 100 10/05/23 11:14 Oxygen Delivery Method Room Air 10/05/23 11:14 Oxygen Flow Rate 0 10/05/23 11:14 Pain Level 5 10/05/23 11:14 Medical Decision Making Leah is a 83-year-old female with history of pulmonary sarcoidosis and asthma who presents to the emergency department for evaluation of viral symptoms. She reports that she started feeling unwell 2 days ago, with phlegm in her throat and mild cough that she attributes to the phlegm. She also reports pressure in the frontal sinuses with occasional sinus headache, and intermittent chills (no shaking chills). Denies fever, difficulty swallowing, chest pain, shortness of breath/wheezing, nausea/vomiting, change in p.o. intake, abdominal discomfort, change in bowel or bladder function. She took an at home COVID test which was negative. Physical exam very reassuring. Patient is alert and oriented, no acute distress. Easy work of breathing, lung sounds clear bilaterally. Normal heart sounds. Moist mucous membranes, no tonsillar hypertrophy/erythema/exudate. Clear voice. History and presentation consistent with viral illness. No red flags concerning for acute bacterial infection such as pneumonia, asthma exacerbation, or other sequelae of illness requiring additional diagnostic imaging or labs. I independently interpreted the following tests: Flu/COVID/RSV significant for flu a positive. Reviewed discharge instructions with patient, including symptomatic management and use of oseltamavir, as she is high risk with pulmonary disease. Educated on red flags indicate need for return to emergency care. Quality:SDOH Health Related Social Needs: No Data to Display PFSH All Active Problems (Updated 08/01/23 @ 00:01 by ASAD BECKHAM) COVID-19 (Acute) Social History Smoking/Tobacco Use Status: Never Smoking risk assessment performed?: Yes Alcohol Intake: never Substance use type: does not use Housing: house Do you feel safe at home: Yes Do you feel safe in your relationship?: Yes Additional Social history: feels lonely at home passed February 2023. CRISTINERN 10/03/23
[2023-10-05 12:13] LABS: COVID-19 PCR Negative (Negative); Influenza A PCR Positive (Negative); Influenza B PCR Negative (Negative); RSV PCR Negative (Negative); Source Nasopharynx
[2023-10-05 12:20] VITALS: BP 157/77; PULSE 72; RESP 18; TEMP 36.7; O2SAT 100
== END 2023-10-05 12:35 | disposition home or self-care (01) ==
PROVIDERS: Emergency Provider Nurse Practitioner Family; PCP Nurse Practitioner Family
DX: R05.1 Acute cough; R50.9 Fever, unspecified; R52 Pain, unspecified
CPT/HCPCS: 87637; 99283

== ENCOUNTER 2023-11-18 14:25 | Outpatient (CLI) | payer MEDICARE, OTHER, SELFPAY ==
[2023-11-18 09:46] LABS: Abs Immature Grans 0.01 10^3/uL (0.0-0.06); Absolute Basophil Count 0.04 10^3/uL (0.0-0.2); Absolute Eosinophil Count 0.06 10^3/uL (0.0-0.7); Absolute Lymphocyte Count 0.68 10^3/uL (1.2-3.4); Absolute Monocyte Count 0.46 10^3/uL (0.1-0.8); Absolute Neutrophil Count 2.84 10^3/uL (1.2-6.7); Eosinophils % 1.5; HCT 41.8 % (36.0-46.0); HGB 13.9 g/dL (11.2-15.7); Immature Grans % 0.2; Lymphocytes % 16.6; MCH 29.9 pg (27.0-33.0); MCHC 33.3 % (32.0-36.0); MCV 90 fL (80-95); MPV 9.3 fL (8.0-11.0); Monocytes % 11.2; Neutrophils % 69.5; Platelet Count 148 10^3/uL (130-400); RBC 4.65 10^6/uL (3.93-5.22); RDW 12.1 % (11.7-14.6); WBC 4.09 10^3/uL (4.4-10.8)
[2023-11-18 10:04] LABS: ALT 30 U/L (14-59); AST 23 U/L (15-37); Albumin 3.8 g/dL (3.4-5.0); Alkaline Phosphatase 99 U/L (46-116); Anion Gap 8.4 mmol/L (3-11); BUN 17 mg/dL (7-18); Bilirubin, Total 0.5 mg/dL (0.2-1.0); CO2 29.6 mmol/L (21.0-32.0); CREATININE 0.9 mg/dL (0.55-1.02); Calcium 8.8 mg/dL (8.5-10.1); Chloride 109 mmol/L (98-107); Estimated GFR 64.23 (mL/min/1.73m2); Glucose 99 mg/dL (74-106); Potassium 4.4 mmol/L (3.5-5.1); Sodium 147 mmol/L (136-145); Total Protein 6.8 g/dL (6.4-8.2)
== END 2023-11-18 14:26 | disposition home or self-care (01) ==
LOC: LBO 14:25
PROVIDERS: PCP Nurse Practitioner Family; Visit Provider Nurse Practitioner Adult Health
DX: D72.819 Decreased white blood cell count, unspecified (principal); D69.6 Thrombocytopenia, unspecified
CPT/HCPCS: 36415; 80053; 85025

== ENCOUNTER 2023-12-24 10:49 | Emergency (ER) | payer MEDICARE, OTHER, SELFPAY ==
[2023-12-24 10:52] VITALS: BP 133/53; PULSE 85; RESP 15; TEMP 36.6; O2SAT 99
--- NOTE | 2023-12-24 10:53 | ED.GENADUL_ITS ---
Discharge Plan Disposition Patient Disposition: Home Discharge Details Clinical Impression: Scab Primary Care Provider: Kathi Holbrook ED Provider: Palomo Barclay Home Meds and New Rx's Prescriptions: Continued biotin 10 MG tablet 10 mg PO DAILY fluticasone propionate [Flovent HFA] 120 PUFF HFA aerosol inhaler 1 puff Inhalation DAILY Magnesium (oxide/AA chelate) 300 MG capsule 300 mg PO DAILY ibandronate 150 mg tablet 150 mg PO Q30D atorvastatin 20 mg tablet 20 mg PO HS albuterol sulfate 90 mcg/actuation HFA aerosol inhaler 1 puff INHALATION DAILY cholecalciferol (vitamin D3) 50 mcg (2,000 unit) capsule 100 mcg PO DAILY Discharge Instructions Additional Instructions: You are seen in the emergency department for your concerns over the scab on your back. You have no obvious signs of a tick bite. As we discussed if you develop a red rash fevers or any swelling please return to emergency department. Otherwise please follow-up with your primary care provider as needed in the next week. HPI General Date/Time Provider Initiated Documentation: 12/24/23 10:53 . HPI Narrative: MDM This is an overall very well-appearing normothermic and not tachycardic 83-year-old female with hemostatic lesion on her back more consistent with a scab than a tick bite for which she will receive empiric trial of discharge with expectant outpatient management and strict return indications. Based on the size of the lesion on the patient's back I am not suspicious for tick bite. No pain or proportion to suggest necrotizing soft tissue infection. Patient did not find a tick and routinely checks herself for ticks so patient does not meet criteria for prophylactic doxycycline given no obvious tick bite. There are certainly no ticks on my exam. No erythema migrans to suggest Lyme disease. No erythema to suggest cellulitis. No rash to suggest zoster. No bullae to suggest Ramos-Russel's nor TEN. No fluctuance to suggest abscess. Patient and I discussed return to the ED for any rash fevers swelling chest pain or shortness of breath. No falls to suggest increased risk for rib fracture. Patient and I discussed that I was not sure the exact etiology of her symptoms but that it could have been she dislodged a scab on her back as the approximately 3 mm area does not appear consistent with a tick bite. Nonetheless I advised that she should return for any bull's-eye rash any bleeding or any fevers or fatigue. She understood her return indications and was discharged with empiric trial of expectant outpatient management. Chronic conditions affecting the care of the patient: N/A History obtained from an outside historian: N/A External record review: N/A Medications: N/A Social determinants of health affecting disposition: N/A Management discussed with: N/A Treatment/interventions considered: N/A Response to therapies provided: N/A HPI This is an 83-year-old female arrived to the emergency department via private vehicle in the setting of concern for a tick bite. Patient notes that this morning she was getting dressed she felt an abnormal area on her left back. She noticed some signs of recent scab. She wanted to be certain that this was not from a tick bite so she came to the emergency department. She is outside extensively and is concerned about whether or not she had a tick bite. She lives alone but routinely checks herself using fuentes for ticks. She did not notice a rash on her back. She has not taken any recent falls. She denies any fevers chills nausea vomiting chest pain shortness of breath. No dysuria. No frequency. Exam General: Well-appearing in no acute distress speaking in complete sentences. Head: Normocephalic, atraumatic. Eye: Extraocular eye movements intact. No conjunctival injection. No scleral icterus. Ear, nose, mouth, throat: Grossly normal inspection. Normal voice, handling secretions normally. Neck: Trachea midline. Cardiovascular: Well-perfused distal extremities. Respiratory: Nonlabored respiration. Gastrointestinal: Nondistended abdomen. Back: On the left side of the patient's back approximately mid scapular area in the mid thoracic area there is an approximately 3 cm erythematous area that appears consistent with a recently removed scab. No rash. No vesicles. No bullae. No signs of erythema migrans. No surrounding erythema. No fluctuance. No significant tenderness to palpation. Musculoskeletal: No edema. Moving all 4 extremities spontaneously. Skin: Normal for age and race, grossly normal temperature and turgor. No acute rash. Neurologic: Alert and appropriate, no apparent acute deficits. Psychiatric: Mood and manner are appropriate. Grooming and personal hygiene are appropriate. Related Data Home Medications Medication Instructions Recorded Confirmed biotin 10 mg tablet 10 mg PO DAILY 05/07/17 12/24/23 fluticasone propionate 44 1 puff inhalation DAILY 05/07/17 12/24/23 mcg/actuation HFA aerosol inhaler (Flovent HFA) magnesium oxide-magnesium amino 300 mg PO DAILY 05/07/17 12/24/23 acid chelate 300 mg capsule (Magnesium (oxide/AA chelate)) albuterol sulfate 90 mcg/actuation 1 puff inhalation DAILY 10/05/23 12/24/23 aerosol inhaler atorvastatin 20 mg tablet 20 mg PO HS 10/05/23 12/24/23 cholecalciferol (vitamin D3) 50 100 mcg PO DAILY 10/05/23 12/24/23 mcg (2,000 unit) capsule ibandronate 150 mg tablet 150 mg PO Q30D 10/05/23 12/24/23 Allergies Allergy/AdvReac Type Severity Reaction Status Date / Time adhesive tape AdvReac Intermediate Other (See Unverified 12/24/23 10:59 Comment) hydromorphone [From Dilaudid] AdvReac Intermediate Nausea Unverified 12/24/23 10:59 metronidazole [From Flagyl] AdvReac Intermediate Skin Rash Unverified 12/24/23 10:59 mild Allergy Intermediate sinusitis Uncoded 12/24/23 10:59 General ABIMBOLA: 4 Medical Decision Making Quality:SDOH Health Related Social Needs: No Data to Display PFSH All Active Problems (Updated 12/24/23 @ 11:22 by Palomo Barclay MD) Scab (Acute) COVID-19 (Acute) Social History Smoking/Tobacco Use Status: Never Smoking risk assessment performed?: Yes Alcohol Intake: never Substance use type: does not use Housing: house Do you feel safe at home: Yes Do you feel safe in your relationship?: Yes Additional Social history: feels lonely at home passed February 2023. CRISTINE,RN 10/03/23
[2023-12-24 11:46] VITALS: BP 133/53; PULSE 85; RESP 15; TEMP 36.6; O2SAT 99
== END 2023-12-24 11:46 | disposition home or self-care (01) ==
PROVIDERS: Emergency Provider Emergency Medicine; PCP Nurse Practitioner Family
DX: R23.4 Changes in skin texture (principal)
CPT/HCPCS: 99283

== ENCOUNTER 2024-06-14 13:53 | Emergency (ER) | payer MEDICARE, OTHER, SELFPAY ==
[2024-06-14 13:56] VITALS: BP 160/68; PULSE 70; RESP 10; TEMP 36.7; O2SAT 98
--- NOTE | 2024-06-14 14:19 | ED.GENADUL_ITS ---
Discharge Plan Disposition Patient Disposition: Home Condition: Good Discharge Details Clinical Impression: Laceration of left middle finger Primary Care Provider: Kathi Holbrook ED Provider: Stanley Alegre Home Meds and New Rx's Prescriptions: No Action biotin 10 MG tablet 10 mg PO DAILY fluticasone propionate [Flovent HFA] 120 PUFF HFA aerosol inhaler 1 puff Inhalation DAILY Magnesium (oxide/AA chelate) 300 MG capsule 300 mg PO DAILY atorvastatin 20 mg tablet 20 mg PO HS albuterol sulfate 90 mcg/actuation HFA aerosol inhaler 1 puff INHALATION DAILY cholecalciferol (vitamin D3) 50 mcg (2,000 unit) capsule 100 mcg PO DAILY Discharge Instructions Instructions: Laceration Repair With Glue ED Additional Instructions: Please keep the area clean and dry. Monitor closely for any redness, drainage or discharge. Keep the area dry and do not soak it. The glue will be removed on its own after a few days. For long-term scar cosmesis, please make sure to avoid any sun to the area for the next year. Apply moisturizer or vitamin E to the area twice daily for the next 12 months for the best chance of wound/scar medication. Please take a daily multivitamin as well as this can help in wound healing. If you notice any worsening of your symptoms, or any new symptoms such as vomiting, diarrhea, fever, chills, shortness of breath, chest pain, numbness, weakness, or fainting , please return immediately to the emergency department for reevaluation. Please follow up with your primary care provider as soon as possible for reassessment and reevaluation. As always, it was a pleasure participating in your medical care today. Referrals: Kathi Holbrook, DEA [Primary Care Provider] - Discharge Data Discharge Date/Time-TO BE ENTERED AT DEPARTURE: 06/14/24 14:46 HPI General Date/Time Provider Initiated Documentation: 06/14/24 14:11 . HPI Narrative: 83-year-old female presents today for evaluation of laceration to her left hand middle finger. She states that about 30 minutes prior to arrival she was opening a can of beans when the can cut her middle finger. She applied a tight bandage and came to the ER after cleaning it. She denies any numbness or tingling. She does admit to a burning sensation. No other complaints at this time. No blood thinner use. Related Data Home Medications ?Medication ?Instructions ?Recorded ?Confirmed biotin 10 mg tablet 10 mg PO DAILY 05/07/17 06/14/24 fluticasone propionate 44 1 puff inhalation DAILY 05/07/17 06/14/24 mcg/actuation HFA aerosol inhaler (Flovent HFA) magnesium oxide-magnesium amino 300 mg PO DAILY 05/07/17 06/14/24 acid chelate 300 mg capsule (Magnesium (oxide/AA chelate)) albuterol sulfate 90 mcg/actuation 1 puff inhalation DAILY 10/05/23 06/14/24 aerosol inhaler atorvastatin 20 mg tablet 20 mg PO HS 10/05/23 06/14/24 cholecalciferol (vitamin D3) 50 100 mcg PO DAILY 10/05/23 06/14/24 mcg (2,000 unit) capsule Allergies Allergy/AdvReac Type Severity Reaction Status Date / Time adhesive tape AdvReac Intermediate Other (See Unverified 06/14/24 14:00 Comment) hydromorphone (From Dilaudid) AdvReac Intermediate Nausea Unverified 06/14/24 14:00 metronidazole (From Flagyl) AdvReac Intermediate Skin Rash Unverified 06/14/24 14:00 mild Allergy Intermediate sinusitis Uncoded 06/14/24 14:00 General Stated Complaint: Laceration ABIMBOLA: 4 Review of Systems All systems reviewed & are unremarkable except as noted in HPI and below Exam Narrative Exam Narrative: 1.Const: Well-nourished, Well-developed, appearing stated age 2.Eyes: PERRL, no conjunctival injection, and symmetrical lids. 3.ENT: Atraumatic external nose and ears. Moist MM. Neck: Symmetric, trachea midline, No thyromegaly. 4.CVS: +S1/S2, Peripheral pulses 2+ and equal in all extremities. Brisk capillary refill in all extremities. 5.RESP: Unlabored respiratory effort. Clear to auscultation bilaterally. No wheezes rales or rhonchi 6.GI: Soft, Nontender/Nondistended, No hepatosplenomegaly. No guarding or rebound. 7.MSK: Normocephalic/Atraumatic, Extremities w/o deformity or ttp No cyanosis or clubbing, Normal movement of all extremities 8.Skin: Warm, Dry. No rashes or lesions. Patient has a small 1 cm superficial laceration over the distal tip of her left hand middle finger. Minimal active oozing at this time. Patient demonstrates excellent flexion and extension, normal sensation distally. 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 Sensation grossly intact, no focal neurologic deficits. 10.Psych: (AAO) x3. Appropriate mood and affect Course Vital Signs Vital signs: Vital Signs Temperature 36.7 C 06/14/24 13:56 Pulse 70 06/14/24 13:56 Respiratory Rate 10 L 06/14/24 13:56 Blood Pressure 160/68 H 06/14/24 13:56 Pulse Oximetry 98 06/14/24 13:56 Temperature 36.7 C 06/14/24 13:56 Temperature Source Oral 06/14/24 13:56 Pulse 70 06/14/24 13:56 Respiratory Rate 10 L 06/14/24 13:56 Respiratory Effort Normal, Non-Labored 06/14/24 13:58 Blood Pressure 160/68 H 06/14/24 13:56 Blood Pressure Position Sitting 06/14/24 13:56 Pulse Oximetry 98 06/14/24 13:56 Oxygen Delivery Method Room Air 06/14/24 13:56 Oxygen Flow Rate 0 06/14/24 13:56 Pain Level 1 06/14/24 13:56 Procedures Laceration Laceration 1: Site: hand (Middle finger distal tip) Side (If applicable): left Size (cm): 1 Description: linear Depth: simple, single layer Pre-repair: wound explored Skin layer closed with: other (Dermabond) Medical Decision Making 83-year-old female presents today for evaluation of laceration to her left hand middle finger. She states that about 30 minutes prior to arrival she was opening a can of beans when the can cut her middle finger. She applied a tight bandage and came to the ER after cleaning it. She denies any numbness or tingling. She does admit to a burning sensation. No other complaints at this time. No blood thinner use. Exam demonstrates well-appearing female, distal tip of the middle finger on the left hand demonstrates a small superficial 1 cm laceration. Minimal active oozing. Tourniquet was applied, she demonstrates a normal neurovascular exam distally. Dermabond was applied x 3 layers. She tolerated this well. No subsequent bleeding. With no neurovascular abnormality, I do not think any additional imaging or procedure elicitation is indicated at this time. Tetanus will be updated today. Patient will be discharged home. Discussed red flags which to return. I have extensively reviewed the treatment plan and discharge instructions with the patient. I have addressed all patient concerns at this time. The patient was made aware of what symptoms to monitor for that would warrant a return to the emergency department. Discussed the plan with the patient, they demonstrate verbal understanding and agreement with our assessment and plan at this time. The documentation in this chart was dictated using [employer] dictation software. Please excuse any dictation errors. Quality:SDOH Health Related Social Needs: No Data to Display PFSH All Active Problems (Updated 06/14/24 @ 14:41 by Stanley Alegre DO) Laceration of left middle finger (Acute) COVID-19 (Acute) Social History Smoking/Tobacco Use Status: Never Smoking risk assessment performed?: Yes Alcohol Intake: never Drug use: Never Substance use type: does not use Housing: house Do you feel safe at home: Yes Do you feel safe in your relationship?: Yes Additional Social history: feels lonely at home passed February 2023. CRISTINE,RN 10/03/23
== END 2024-06-14 14:46 | disposition home or self-care (01) ==
PROVIDERS: Emergency Provider Student in an Organized Health Care Education/Training Program; PCP Nurse Practitioner Family
DX: S61.213A Laceration without foreign body of left middle finger without damage to nail, initial encounter (principal); Z23 Encounter for immunization; W26.8XXA Contact with other sharp object(s), not elsewhere classified, initial encounter; Y93.89 Activity, other specified; Y92.018 Other place in single-family (private) house as the place of occurrence of the external cause
CPT/HCPCS: 12001; 90471; 90715; 99283

== ENCOUNTER 2025-01-10 21:05 | Emergency (ER) | payer MEDICARE, OTHER, SELFPAY ==
[2025-01-10 21:14] VITALS: BP 167/70; PULSE 64; TEMP 36.4; O2SAT 97
--- NOTE | 2025-01-10 22:15 | W.ED.GENAD ---
Discharge Plan Disposition Patient Disposition: Home Condition: Good Discharge Details Clinical Impression: Tick bite of right flank Primary Care Provider: Kathi Holbrook ED Provider: Stanley Alegre Home Meds and New Rx's Prescriptions: No Action biotin 10 MG tablet 10 mg PO DAILY fluticasone propionate [Flovent HFA] 120 PUFF HFA aerosol inhaler 1 puff Inhalation DAILY Magnesium (oxide/AA chelate) 300 MG capsule 300 mg PO DAILY atorvastatin 20 mg tablet 20 mg PO HS albuterol sulfate 90 mcg/actuation HFA aerosol inhaler 1 puff INHALATION DAILY cholecalciferol (vitamin D3) 50 mcg (2,000 unit) capsule 100 mcg PO DAILY Discharge Instructions Instructions: Doxycycline, Lyme Disease Test Additional Instructions: At this time you have a lesion that may have been from a tick bite. Thankfully there is no evidence of significant rash, or active tick at this time. We will give you a dose of doxycycline to take. Please take both tablets (200 mg total) when you get home after you have had some food to eat, otherwise it can cause an upset stomach. If you notice any worsening of your symptoms, or any new symptoms such as vomiting, diarrhea, fever, chills, shortness of breath, chest pain, numbness, weakness, or fainting , please return immediately to the emergency department for reevaluation. Please follow up with your primary care provider as soon as possible for reassessment and reevaluation. As always, it was a pleasure participating in your medical care today. Referrals: Kathi Holbrook, [facility]A [Primary Care Provider] - HPI General Date/Time Provider Initiated Documentation: 01/10/25 21:32. HPI Narrative: This is a very pleasant 84-year-old female with a past medical history of sarcoidosis, high cholesterol, who presents today for presumed tick bite on her right flank. Patient states that she was taking her clothes off this evening when she felt something on her back. She has great data and often came blood and small mix of tissue. She was uncertain if there was a tick at that point. Given that she is a , she lives alone, and was not able to visualize the area she came to the ER for further assessment. She denies fever or chills. She denies any other complaints whatsoever. Related Data Home Medications ?Medication ?Instructions ?Recorded ?Confirmed biotin 10 mg tablet 10 mg PO DAILY 05/07/17 01/10/25 fluticasone propionate 44 1 puff inhalation DAILY 05/07/17 01/10/25 mcg/actuation HFA aerosol inhaler (Flovent HFA) magnesium oxide-magnesium amino 300 mg PO DAILY 05/07/17 01/10/25 acid chelate 300 mg capsule (Magnesium (oxide/AA chelate)) albuterol sulfate 90 mcg/actuation 1 puff inhalation DAILY 10/05/23 01/10/25 aerosol inhaler atorvastatin 20 mg tablet 20 mg PO HS 10/05/23 01/10/25 cholecalciferol (vitamin D3) 50 100 mcg PO DAILY 10/05/23 01/10/25 mcg (2,000 unit) capsule Allergies Allergy/AdvReac Type Severity Reaction Status Date / Time adhesive tape AdvReac Intermediate Other (See Verified 01/10/25 21:18 Comment) hydromorphone (From Dilaudid) AdvReac Intermediate Nausea Verified 01/10/25 21:18 metronidazole (From Flagyl) AdvReac Intermediate Skin Rash Verified 01/10/25 21:18 mild Allergy Intermediate sinusitis Uncoded 01/10/25 21:18 General Stated Complaint: InsectBite ABIMBOLA: 5 Exam Narrative Exam Narrative: 1.Const: Well-nourished, Well-developed, appearing stated age 2.Eyes: PERRL, no conjunctival injection, and symmetrical lids. 3.ENT: Atraumatic external nose and ears. Moist MM. Neck: Symmetric, trachea midline, No thyromegaly. 4.CVS: +S1/S2, Peripheral pulses 2+ and equal in all extremities. Brisk capillary refill in all extremities. 5.RESP: Unlabored respiratory effort. Clear to auscultation bilaterally. No wheezes rales or rhonchi 6.GI: Soft, Nontender/Nondistended, No hepatosplenomegaly. No guarding or rebound. 7.MSK: Normocephalic/Atraumatic, Extremities w/o deformity or ttp No cyanosis or clubbing, Normal movement of all extremities 8.Skin: Warm, Dry. No rashes or lesions. Patient demonstrates evidence of a very small crater secondary to a single excoriated karen on her right flank. No active bleeding. No residual tick head or tick for that matter. No evidence of erythema migrans or surrounding rash. 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 Sensation grossly intact, no focal neurologic deficits. 10.Psych: (AAO) x3. Appropriate mood and affect Course Vital Signs Vital signs: Vital Signs Temperature 36.4 C L 01/10/25 21:14 Pulse 64 01/10/25 21:14 Blood Pressure 167/70 H 01/10/25 21:14 Pulse Oximetry 97 01/10/25 21:14 Temperature 36.4 C L 01/10/25 21:14 Pulse 64 01/10/25 21:14 Blood Pressure 167/70 H 01/10/25 21:14 Pulse Oximetry 97 01/10/25 21:14 Medical Decision Making This is a very pleasant 84-year-old female with a past medical history of sarcoidosis, high cholesterol, who presents today for presumed tick bite on her right flank. Patient states that she was taking her clothes off this evening when she felt something on her back. She has great data and often came blood and small mix of tissue. She was uncertain if there was a tick at that point. Given that she is a , she lives alone, and was not able to visualize the area she came to the ER for further assessment. She denies fever or chills. She denies any other complaints whatsoever. Patient demonstrates evidence of a very small crater secondary to a single excoriated karen on her right flank. No active bleeding. No residual tick head or tick for that matter. No evidence of erythema migrans or surrounding rash. With no current evidence of residual tick, or erythema migrans I do not see an indication for prolonged doxycycline course. Uncertain if this originally was a tick, however because of the location and risk factors, we will give prophylactic 200 mg doxycycline. Patient has not eaten for about 6 to 7 hours, and so we we will send her home with the 200 mg and recommend that she eats food prior to taking the medication to prevent upset stomach. Otherwise patient appears well and has no systemic symptoms indicating further testing. Patient will be discharged home. Discussed red flags for which to return. I have extensively reviewed the treatment plan and discharge instructions with the patient. I have addressed all patient concerns at this time. The patient was made aware of what symptoms to monitor for that would warrant a return to the emergency department. Discussed the plan with the patient, they demonstrate verbal understanding and agreement with our assessment and plan at this time. The documentation in this chart was dictated using [employer] dictation software. Please excuse any dictation errors. Quality:SDOH Health Related Social Needs: No Data to Display PFSH All Active Problems (Updated 01/10/25 @ 22:17 by Stanley Alegre DO) Tick bite of right flank (Acute) COVID-19 (Acute) Social History Smoking/Tobacco Use Status: Never Smoking risk assessment performed?: Yes Alcohol Intake: never Drug use: Never Substance use type: does not use Housing: house Do you feel safe at home: Yes Do you feel safe in your relationship?: Yes Additional Social history: feels lonely at home passed February 2023. CRISTINE,RN 10/03/23
[2025-01-10] MEDS: Doxycycline Hyclate 100 MG, 2 CAPS/BTL PO (22:18)
== END 2025-01-10 22:22 | disposition home or self-care (01) ==
PROVIDERS: Emergency Provider Student in an Organized Health Care Education/Training Program; PCP Nurse Practitioner Family
DX: S30.861A Insect bite (nonvenomous) of abdominal wall, initial encounter (principal); W57.XXXA Bitten or stung by nonvenomous insect and other nonvenomous arthropods, initial encounter; Y93.89 Activity, other specified; Y92.89 Other specified places as the place of occurrence of the external cause
CPT/HCPCS: 99283

== ENCOUNTER 2025-07-20 13:19 | Emergency (ER) | payer MEDICARE, OTHER, SELFPAY ==
[2025-07-20 13:19] VITALS: BP 137/109; PULSE 85; RESP 16; O2SAT 98
--- NOTE | 2025-07-20 13:34 | W.ED.GENAD ---
Discharge Plan Disposition Patient Disposition: Home Condition: Stable Discharge Details Clinical Impression: Scalp abrasion Primary Care Provider: Kathi Holbrook ED Provider: Stanley Cormier Home Meds and New Rx's Prescriptions: Continued biotin 10 MG tablet 10 mg PO DAILY fluticasone propionate [Flovent HFA] 120 PUFF HFA aerosol inhaler 1 puff Inhalation DAILY Magnesium (oxide/AA chelate) 300 MG capsule 300 mg PO DAILY atorvastatin 20 mg tablet 20 mg PO HS albuterol sulfate 90 mcg/actuation HFA aerosol inhaler 1 puff INHALATION DAILY cholecalciferol (vitamin D3) 50 mcg (2,000 unit) capsule 100 mcg PO DAILY Discharge Instructions Instructions: Laceration Repair With Glue ED Additional Instructions: You were seen in the emergency department for a tiny scalp abrasion, we cleaned this and dressed it with glue, you can wash your hair normally and the glue will follow-up in due time, please watch for any signs of infection like increase in pain, redness, warmth to touch, drainage of pus from the area, and return for any of the symptoms. Your tetanus is up-to-date. Stand Alone Forms: Portal Information Referrals: Kathi Holbrook, [facility] [Primary Care Provider, Medicine] Discharge Data Discharge Date/Time-TO BE ENTERED AT DEPARTURE: 07/20/25 14:43 HPI General Date/Time Provider Initiated Documentation: 07/20/25 13:27. HPI Narrative: 85 year-old female presents to ED today by EMS with a chief complaint of scalp abrasion when she was cleaning a light fixture and the globe of glass fell on her head causing some bleeding with onset about 30 minutes ago. Quality described as denies current headache or neck pain, no radiation to numbness, tingling, loss of consciousness, amnesia, nausea or vomiting, visual changes. Severity is described as minor. Palliating factors include bleeding controlled with direct pressure and route. Provoking factors include nothing specific. Patient not anticoagulated. Related Data Home Medications ?Medication ?Instructions ?Recorded ?Confirmed biotin 10 mg tablet 10 mg PO DAILY 05/07/17 01/10/25 fluticasone propionate 44 1 puff inhalation DAILY 05/07/17 01/10/25 mcg/actuation HFA aerosol inhaler (Flovent HFA) magnesium oxide-magnesium amino 300 mg PO DAILY 05/07/17 01/10/25 acid chelate 300 mg capsule (Magnesium (oxide/AA chelate)) albuterol sulfate 90 mcg/actuation 1 puff inhalation DAILY 10/05/23 01/10/25 aerosol inhaler atorvastatin 20 mg tablet 20 mg PO HS 10/05/23 01/10/25 cholecalciferol (vitamin D3) 50 100 mcg PO DAILY 10/05/23 01/10/25 mcg (2,000 unit) capsule Allergies Allergy/AdvReac Type Severity Reaction Status Date / Time adhesive tape AdvReac Intermediate Other (See Verified 01/10/25 21:18 Comment) hydromorphone (From Dilaudid) AdvReac Intermediate Nausea Verified 01/10/25 21:18 metronidazole (From Flagyl) AdvReac Intermediate Skin Rash Verified 01/10/25 21:18 mild Allergy Intermediate sinusitis Uncoded 01/10/25 21:18 General Stated Complaint: Laceration ABIMBOLA: 4 Review of Systems All systems reviewed & are unremarkable except as noted in HPI and below Exam Narrative Exam Narrative: GENERAL APPEARANCE: Well-nourished, non-toxic, awake and alert, atraumatic, no acute distress. SKIN: Warm, pink, dry, intact, without rashes/lesions/ulcerations. HEAD: Normocephalic, normal hair distribution for gender/age, pinpoint scalp abrasion at crown without hematoma, no Werner's sign, no periorbital ecchymosis EYES: Normal conjunctiva, no exudates on lids/lashes, EOMs intact without nystagmus ENT: Nares patent, no circumoral cyanosis, no facial swelling NECK: Supple, trachea midline, painless cervical ROM, no tenderness. LUNGS/CHEST: Non-labored respirations, normal A/P diameter, symmetrical expansion, no chest wall deformity HEART (CV/PV): No peripheral edema, no JVD. ABDOMEN: Soft, non-distended, no guarding. MSK: Normal ROM, no swelling/deformity to bilateral UEs or LEs, moving all extremities without weakness, no cyanosis, spine midline without tenderness, normal curvature. NEURO: Mental Status AAOx4 - alert to person, place, time, events No facial droop, no forehead involvement. Motor: No focal weakness Sensory: sensation intact to light touch globally. Gait normal: patient ambulated without ataxia into ED room. PSYCH: euthymic, cooperative, pleasant, appropriate speech Course Vital Signs Vital signs: Vital Signs Pulse 85 07/20/25 13:19 Respiratory Rate 16 07/20/25 13:19 Blood Pressure 137/109 H 07/20/25 13:19 Pulse Oximetry 98 07/20/25 13:19 Pulse 85 07/20/25 13:19 Respiratory Rate 16 07/20/25 13:19 Blood Pressure 137/109 H 07/20/25 13:19 Blood Pressure Position Sitting 07/20/25 13:19 Pulse Oximetry 98 07/20/25 13:19 Oxygen Delivery Method Room Air 07/20/25 13:19 Oxygen Flow Rate 0 07/20/25 13:19 Pain Level 0 07/20/25 13:19 Procedure Laceration Laceration 1: Provider that performed the procedure: Stanley Cormier Standard Time Out Performed: No Patient Consented: Verbally Site: scalp Description: other (pinpoint abrasion @ crown) Local anesthetic: LET(lidocaine epinephrine tetracaine) Amount of anesthesia used (mL): 3 Pre-repair:: irrigated extensively Skin layer closed with: other (Skin[employer] skin glue) Complications: None Medical Decision Making This dictation utilizes [id number] dictation software and may contain unedited grammatical errors. 85 year-old female presents to ED today by EMS with a chief complaint of scalp abrasion when she was cleaning a light fixture and the globe of glass fell on her head causing some bleeding with onset about 30 minutes ago. Quality described as denies current headache or neck pain, no radiation to numbness, tingling, loss of consciousness, amnesia, nausea or vomiting, visual changes. Severity is described as minor. Palliating factors include bleeding controlled with direct pressure and route. Provoking factors include nothing specific. Patients' medical history: Noncontributory. Family and social history: Noncontributory. Pertinent exam findings / vital signs include tiny pinpoint scalp abrasion to crown of head, no significant scalp hematoma, no Werner sign, no periorbital ecchymosis, no cervical tenderness. Differential / pathologies of concern include scalp abrasion. Diagnostic studies of: - None, does not meet [place] head CT rules. Interventions of: - Repaired with skin glue. ED Course/Assessment/Plan: 85-year-old female had a glass globe from a light fixture fall on her head causing scalp abrasion without any loss of consciousness and no active headache currently, has no neurologic abnormalities and bleeding had stopped by time of arrival, I did place some Dermabond over the abrasion to prevent rebleeding and counseled the patient that this would fall off normally and to return for any neurologic concerns or any other emergent concerns. Findings not consistent with significant concussion, intracranial hemorrhage, large laceration. Disposition of scalp abrasion. Patient verbalized understanding of the plan and return to ED criteria and engaged in shared decision making. Medical Records Medical records reviewed: Yes I reviewed the patient's medical records. PFSH All Active Problems (Updated 07/20/25 @ 14:23 by NARCISO Dorman) Scalp abrasion (Acute) COVID-19 (Acute) Social History Smoking/Tobacco Use Status: Never Smoking risk assessment performed?: Yes Alcohol Intake: never Drug use: Never Substance use type: does not use Housing: house Do you feel safe at home: Yes Do you feel safe in your relationship?: Yes Additional Social history: feels lonely at home passed February 2023. CRISTINE,RN 10/03/23
[2025-07-20 13:42] VITALS: BP 143/61
== END 2025-07-20 14:43 | disposition home or self-care (01) ==
PROVIDERS: Emergency Provider Physician Assistant; PCP Nurse Practitioner Family
DX: S00.01XA Abrasion of scalp, initial encounter (principal); W22.8XXA Striking against or struck by other objects, initial encounter
CPT/HCPCS: 12001